=== PATIENT | female | born 1950 | race Caucasian/White ===

== ENCOUNTER 2016-07-15 11:43 | Inpatient (IN) ==
[2016-07-15] MEDS ORDERED: Naloxone 0.4 MG/ML INJ IVP PRN (14:39)
[2016-07-15] MEDS ORDERED: Azithromycin 500 MG in D5% in Water 250 ML IVPB SCH (15:00)
--- NOTE | 2016-07-15 15:18 | Pulmonology History & Physical ---
Date of Encounter: 07/15/16 Time of Encounter: 15:13 Assessment and Plan (1) Acute respiratory failure with hypercapnia Current visit: Yes Status: Acute Multifactorial in etiology and due to underlying COPD with acute exacerbation coupled with obesity hypoventilation syndrome + respiratory depressants ( opioids and benzodiazepines). Continue BiPAP tolerance. We will keep her on BiPAP overnight tonight, and assess in the a.m. for trials off BiPAP. If her mental status were to worsen or she develops worsening hypercapnic respiratory failure, proceed with intubation. I discussed the possibility of this with the family, and she is currently full code. (2) Acute exacerbation of chronic obstructive airways disease Current visit: No Status: Acute History of COPD and an active smoker. She is wheezing on exam. Unclear etiology of acute exacerbation. She is febrile and may have an upper respiratory tract infection, but I am unable to obtain history for this. We will place her on levofloxacin, intravenous steroids, and scheduled bronchodilators. (3) CHF (congestive heart failure) Current visit: No Status: Chronic Most recent echocardiogram with combined systolic and diastolic heart failure. BNP was mildly elevated, but the chest x-ray is not impressive for severe pulmonary edema. She was given a dose of diuretic prior to transfer. We will place a Allred and trend her ins and outs. Otherwise continue heart rate and blood pressure control for treatment of diastolic heart failure. Qualifiers: Congestive heart failure type: combined Congestive heart failure chronicity : unspecified congestive heart failure chronicity Qualified Code(s): I50.40 - Unspecified combined systolic (congestive) and diastolic (congestive) heart failure (4) Acute kidney injury superimposed on CKD Current visit: Yes Status: Acute Creatinine is slightly elevated from her baseline (~1.5). We will continue to trend urine output and Chem-7 as we diurese. We will repeat a Chem-7 in the p.m. today, as her potassium was elevated on a.m. Chem-7. (5) Fever Current visit: Yes Status: Acute Fever of unclear etiology, since I am unable to obtain a proper history. We will check a urinalysis/culture and blood cultures. If she does produce sputum we will check a sputum culture. She has been started on levofloxacin empirically for upper respiratory tract infection. Qualifiers: Fever type: unspecified Qualified Code(s): R50.9 - Fever, unspecified (6) Encephalopathy Current visit: Yes Status: Acute Likely toxic/metabolic in etiology. She did receive a dose of Ativan prior to transfer. Hypercapnia may be playing a role as well. We will continue supportive care and avoid sedating and delirium inducing medications. (7) DVT prophylaxis Current visit: Yes Status: Acute Subcutaneous heparin History of Present Illness Chief complaint: Acute respiratory failure HPI: Ms. Pruitt is a 66 year old female with a medical history significant for untreated sleep apnea, morbid obesity, COPD, and active smoking who presents with acute respiratory failure and encephalopathy. Of note, the patient is currently encephalopathic and I am unable to obtain any history or review of systems. Information was obtained from the medical record and discussion with hospital staff + family at bedside. Reportedly, the patient had been increasingly confused at home. This was associated with progressive dyspnea on exertion. The patient had also been fairly somnolent and difficult to arouse. She was taken to [facility] and admitted. She has essentially been BiPAP dependent since admission the past 24 hours. Per family request she was transferred to [facility] for further evaluation and management. Past Med Surg Social Fam HX - Past Medical History Medical history: arthritis, COPD, DVT, dementia, diabetes, hyperlipidemia, hypertension, myocardial infarction, osteoporosis, renal disease, thyroid disease, TIA Psychiatric history: depression - Past Surgical History Surgical History: appendectomy, cholecystectomy, coronary bypass (CABG), hysterectomy, other - Social History Smoking Status: Current every day smoker Smokeless Tobacco Status: No Alcohol use: none Drug use: none - Family History Mother Family Member Ethnicity: Non- Living Status: Hx Family Cardiac Disorders: Yes (CHF, HTN) Hx Family Respiratory Disorders: No Hx Family Cancer: No Hx Family GI Disorders: No Hx Family Endocrine Disorder: Yes (Psorosis) Hx Family Neuromuscular Disorders: No Hx Family Neurologic Disorders: No Hx Family HEENT Disorders: No Hx Family Autoimmune Disorders: No Medications and Allergies Albuterol Sulfate [Proair Hfa] 2 puff IH Q4-6H PRN 09/11/15 [History] Clopidogrel [Plavix] 75 mg PO DAILY 09/11/15 [History] Duloxetine HCl [Cymbalta] 60 mg PO QHS 09/11/15 [History] Ergocalciferol (VITAMIN D2) [Vitamin D2 (50,000 UNIT)] 50,000 unit PO QWEEK [History] Fluticasone/Salmeterol [Advair 500-50 Diskus] 1 each IH BID 09/11/15 [History] Isosorbide MONOnitrate (24 HR) [Imdur] 60 mg PO DAILY 09/11/15 [History] Ranolazine [Ranexa] 1,000 mg PO BID 09/11/15 [History] Simvastatin [Zocor] 20 mg PO HS 09/11/15 [History] Tiotropium [Spiriva] 18 mcg IH 0700 09/11/15 [History] Calcitriol [Rocaltrol] 0.25 mcg PO DAILY 02/23/16 [History] Cetirizine HCl [Zyrtec] 10 mg PO DAILY PRN 02/23/16 [History] LORazepam [Ativan] 1 mg PO BID PRN 02/23/16 [History] Lactulose 15 gm PO HS PRN 02/23/16 [History] Pantoprazole Sodium [Protonix] 40 mg PO DAILY 02/26/16 [History] Furosemide [Lasix] 20 mg PO DAILY #30 tablet 04/26/16 [Rx] Lactobacillus [Culturelle] 1 each PO BID #6 cap.sprink 04/26/16 [Rx] Insulin LISPRO [HumaLOG] 20 units SQ TIDWM 06/07/16 [History] Lisinopril 2.5 mg PO DAILY 06/07/16 [History] Promethazine [Phenergan] 12.5 mg PO Q8HR PRN 06/07/16 [History] Allopurinol [Zyloprim] 200 mg PO DAILY #60 tablet 06/09/16 [Rx] Insulin DETEMIR [Levemir] 90 unit SQ BID #0 06/09/16 [Rx] Metoprolol [Lopressor] 50 mg PO BID #60 tablet 06/09/16 [Rx] Enoxaparin [Lovenox] 100 mg SQ Q12HR 07/15/16 [History] Gabapentin [Neurontin] 600 mg PO TID 07/15/16 [History] Oxycodone HCl/Acetaminophen [Percocet 5-325 mg Tablet] 1 each PO Q6H PRN [History] Warfarin [Coumadin] 5 mg PO TUWETH 07/15/16 [History] Warfarin [Coumadin] 7.5 mg PO SUMOFRSA 07/15/16 [History] Allergies Penicillins Allergy (Verified 07/14/16 04:55) Hives tramadol [From Ultram] Allergy (Verified 07/14/16 04:55) Hives aspirin Adverse Reaction (Verified 07/14/16 04:55) Vomiting codeine Adverse Reaction (Verified 07/14/16 04:55) Vomiting fluticasone [From Flovent Diskus] Adverse Reaction (Verified 07/14/16 04:55) Rash morphine Adverse Reaction (Verified 07/14/16 04:55) Hallucinating Sulfa (Sulfonamide Antibiotics) Adverse Reaction (Verified 07/14/16 04:55) Vomiting ROS unobtainable: due to mental status Physical Examination Vital Signs: Vital Signs, Last 4 Hours Temp Pulse Resp BP Pulse Ox 07/15/16 14:21 103 22 122/55 98 07/15/16 14:11 101.7 F H 104 22 139/65 98 07/15/16 13:54 103 General: Chronically ill-appearing, obese, not interactive with caregivers Eyes: nonicteric ENT: IPAP mask in place Neck: supple, no lymphadenopathy Lungs: Expiratory wheezing noted bilaterally Cardiovascular: regular rate and rhythm Gastrointestinal: normoactive bowel sounds, soft, non-tender, non-distended Integumentary: normal Extremities: no cyanosis, no edema Musculoskeletal: no deformities Neuro: Encephalopathic Psych: Exam deferred
[2016-07-15] MEDS ORDERED: Levofloxacin 750 MG/150 ML 750 MG/150 ML BAG IVPB SCH (16:00)
[2016-07-15] MEDS: Ipratropium/Albuterol Neb 3 ML IH SCH ×2 (16:01→19:36)
[2016-07-15 16:34] LABS: Potassium 5.7 mEq/L (3.5-4.5)
[2016-07-15 16:44] LABS: Bilirubin,Urine Small (Negative); Blood,Urine Large (Negative); Clarity,Urine Clear (Clear); Color,Urine Yellow (Yellow); Glucose,Urine (UA) Normal (Normal); Ketones,Urine Negative (Negative); Leukocyte Esterase,Urine Negative (Negative); Nitrite,Urine Negative (Negative); PH,Urine 5.5 pH Units (5.0-8.0); Protein,Urine >=300 mg/dL (Neg-Trace); Specific Gravity,Urine 1.018 (1.010-1.025); Urobilinogen,Urine Normal (Normal)
[2016-07-15 16:46] LABS: Bacteria,Urine None Seen per hpf (None-Few); Hyaline Casts,Urine None Seen per lpf (None-Few); Squamous Epithelial Cell,Urine Many per lpf (None-Few); WBC,Urine 0-3 per hpf (0-3)
[2016-07-15 16:46] LABS: ABG Base Excess 0.5 mEq/L (-2.0 to 3.0); ABG HCO3 27.7 mEQ/L (21-27); ABG Oxygen Saturation 98 % (95-98); ABG PCO2 55 mmHg (35-45); ABG PH 7.31 pH Units (7.32-7.45); ABG PO2 107 mmHg (85-104); ABG TCO2 29.4 mEq/L (20-26)
[2016-07-15] MEDS: MethylPREDNISolone 40 MG/ML VIAL IVP SCH ×2 (17:16→23:31)
[2016-07-15] MEDS: *HR* Heparin 5,000 UNIT/ML VIAL SQ SCH ×2 (17:16→23:31)
[2016-07-15] MEDS ORDERED: Dextrose Gel 15 GM PO PRN ×2 (17:18)
[2016-07-15] MEDS ORDERED: D5% in Water 1,000 ML IV PRN (17:18)
[2016-07-15] MEDS ORDERED: *HR* Dextrose 50 % in Water (Syg) 50 ML SYRINGE IVP PRN (17:18)
[2016-07-15] MEDS ORDERED: Insulin LISPRO 300 UNITS/3 ML VIAL SQ SCH (18:00)
[2016-07-15] MEDS: Insulin LISPRO 300 UNITS/3 ML VIAL SQ SCH ×2 (18:08→23:32)
[2016-07-15] MEDS: *HR* OxyCODONE/APAP 5/325 TABLET PO PRN (21:29)
[2016-07-16] MEDS: Ipratropium/Albuterol Neb 3 ML IH SCH ×4 (03:33→22:16)
[2016-07-16 04:28] LABS: Basophils % 0.2 %; Hematocrit 32.2 % (35.3-44.9); Hemoglobin 10.1 g/dL (11.5-15.4); Immature Granulocytes % 1.6 % (0-4); Lymphocytes # 0.4 K/mcL (0.6-4.6); Lymphocytes % 7.9 %; Mean Corpuscular HGB Conc 31.4 g/dL (31.6-35.5); Mean Corpuscular Hemoglobin 29.5 pg (28.0-33.3); Mean Corpuscular Volume 94.2 fL (83.0-100.0); Mean Platelet Volume 12.1 fL (9.4-12.4); Monocytes # 0.1 K/mcL (0.0-1.3); Monocytes % 1.6 %; Platelet Count 154 K/mcL (140-400); Red Blood Count 3.42 M/mcL (3.82-4.97); Red Cell Distribution Width 15.4 % (11.5-14.5); Segmented Neutrophils % 88.7 %
[2016-07-16 04:44] LABS: Albumin 2.2 g/dL (3.5-5.0); Albumin/Globulin Ratio 0.5 (1.1-2.2); Bilirubin,Total 0.5 mg/dL (0.2-1.2); Calcium 9.1 mg/dL (8.6-10.8); Globulin 4.7 g/dL (2.4-3.5); Potassium 5.2 mEq/L (3.5-4.5); Total Protein 6.9 g/dL (6.0-8.3)
[2016-07-16] MEDS: Insulin LISPRO 300 UNITS/3 ML VIAL SQ SCH ×5 (05:54→23:28)
[2016-07-16] MEDS: MethylPREDNISolone 40 MG/ML VIAL IVP SCH ×3 (05:54→17:28)
--- NOTE | 2016-07-16 07:25 | Pulmonology Progress Note ---
Date of Encounter: 07/16/16 Time of Encounter: 07:20 Assessment and Plan (1) Acute respiratory failure with hypercapnia Current Visit: Yes Status: Acute Mulifactorial, Acute COPD exacerbation, Obesity hypoventilation syndrome, respiratory depressants (opioids, benzos) BiPAP over night now tolerating NC with O2 95% (2) Acute exacerbation of chronic obstructive airways disease Current Visit: No Status: Acute COPD exacerbation possibly caused by upper respiratory infection Placed on levaquin for empirical therapy IV steroids, scheduled bronchodilators (3) CHF (congestive heart failure) Current Visit: No Status: Chronic Most recent echo showed both systolic and diastolic heart failure BNP:1427, CXR on 07/14/16 demonstrated no abnormalities Was given diuretic prior to transfer Allred in place to trend in and outs Heart rate and blood pressure control Qualifiers: Congestive heart failure type: combined Congestive heart failure chronicity : unspecified congestive heart failure chronicity Qualified Code(s): I50.40 - Unspecified combined systolic (congestive) and diastolic (congestive) heart failure (4) Acute kidney injury superimposed on CKD Current Visit: Yes Status: Acute Creatinine 1.39 today (1.54 yesterday) Continue to diurese and trend labs K: 5.2 today (5.7 yesterday) (5) Fever Current Visit: Yes Status: Acute Urinalysis did not show evidence for UTI and no culture was indicated Blood cultures have not showed any growth Levaquin started empirically for possible URI Qualifiers: Fever type: unspecified Qualified Code(s): R50.9 - Fever, unspecified (6) Encephalopathy Current Visit: Yes Status: Acute Likely toxic/metabolic in etiology Received Ativan prior to transfer Hypercapnia may be playing a role Continue supportive care (7) DVT prophylaxis Current Visit: Yes Status: Acute Heparin SQ Subjective Principal diagnosis: Acute respiratory failure Interval history: Pt is on BiPAP this morning. She reports that she continues to feel short of breath, unchanged from arrival. She denies having any chest pain or abdominal pain. Objective PUL Vital signs: Last Vital Signs Temp 97.6 F 07/16/16 04:00 Pulse 94 07/16/16 06:00 Resp 17 07/16/16 06:00 BP 152/77 07/16/16 06:00 Pulse Ox 98 07/16/16 06:00 General appearance: other (On BiPAP, arousable) Eyes: nonicteric ENT: oropharynx moist Auscultation: bilateral: wheezes, rhonchi Cardiovascular: regular rate and rhythm Gastrointestinal: normoactive bowel sounds, non-tender, non-distended Extremities: no cyanosis, edema Musculoskeletal: no deformities non-focal exam Results - Laboratory Findings CBC and BMP: 07/16/16 03:49 07/16/16 03:49 ABG ABG pH 7.31 pH Units (7.32-7.45) L 07/15/16 13:10 ABG pCO2 55 mmHg (35-45) H 07/15/16 13:10 ABG pO2 107 mmHg (85-104) H 07/15/16 13:10 ABG O2 Saturation 98 % (95-98) 07/15/16 13:10 Abnormal lab findings: Abnormal lab results RBC 3.42 M/mcL (3.82-4.97) L 07/16/16 03:49 Hgb 10.1 g/dL (11.5-15.4) L 07/16/16 03:49 Hct 32.2 % (35.3-44.9) L 07/16/16 03:49 MCHC 31.4 g/dL (31.6-35.5) L 07/16/16 03:49 RDW 15.4 % (11.5-14.5) H 07/16/16 03:49 Lymphocytes # 0.4 K/mcL (0.6-4.6) L 07/16/16 03:49 ABG pH 7.31 pH Units (7.32-7.45) L 07/15/16 13:10 ABG pCO2 55 mmHg (35-45) H 07/15/16 13:10 ABG pO2 107 mmHg (85-104) H 07/15/16 13:10 ABG HCO3 27.7 mEQ/L (21-27) H 07/15/16 13:10 ABG Total CO2 29.4 mEq/L (20-26) H 07/15/16 13:10 Sodium 131 mEq/L (136-145) L 07/16/16 03:49 Potassium 5.2 mEq/L (3.5-4.5) H 07/16/16 03:49 BUN 48 mg/dL (7-20) H 07/16/16 03:49 Creatinine 1.39 mg/dL (0.57-1.11) H 07/16/16 03:49 Est GFR ( Amer) 46 (> 60) L 07/16/16 03:49 Est GFR (Non-Af Amer) 38 (> 60) L 07/16/16 03:49 BUN/Creatinine Ratio 35 (6-26) H 07/16/16 03:49 Glucose 323 mg/dL (70-99) H 07/16/16 03:49 POC Glucose 321 (58-89) H 07/15/16 23:25 Albumin 2.2 g/dL (3.5-5.0) L 07/16/16 03:49 Globulin 4.7 g/dL (2.4-3.5) H 07/16/16 03:49 Albumin/Globulin Ratio 0.5 (1.1-2.2) L 07/16/16 03:49 Urine Protein >=300 mg/dL (Neg-Trace) H 07/15/16 16:30 Urine Blood Large (Negative) H 07/15/16 16:30 Urine Bilirubin Small (Negative) H 07/15/16 16:30 Urine Microscopic RBC 5-15 per hpf (0-3) H 07/15/16 16:30 Ur Squamous Epith Cells Many per lpf (None-Few) H 07/15/16 16:30 - Microbiology Findings Microbiology Findings: Microbiology, Last 48 Hours 07/15/16 16:12 Blood Culture - Preliminary Peripheral Venipuncture No growth. 07/15/16 16:12 Blood Culture - Preliminary Peripheral Venipuncture No growth. - Clinical Findings Intake & Output: Intake & Output 07/15/16 07/15/16 07/16/16 15:59 23:59 07:59 Intake Total 390 / 390 0 / 0 Output Total 975 / 975 275 / 275 Balance -585 / -585 -275 / -275 Weight 98.612 kg Consult Discharge Plan - Plan Referrals: NO,PCP [Primary Care Provider] -
[2016-07-16 07:58] LABS: ABG Base Excess 1.3 mEq/L (-2.0 to 3.0); ABG HCO3 25.9 mEQ/L (21-27); ABG Oxygen Saturation 94 % (95-98); ABG PCO2 53 mmHg (35-45); ABG PH 7.33 pH Units (7.32-7.45); ABG PO2 77 mmHg (85-104); ABG TCO2 29.5 mEq/L (20-26); Blood Gas FiO2 32 %; Blood Gas Liter Flow 3 L/MIN
[2016-07-16] MEDS ORDERED: Furosemide 20 MG/2 ML VIAL IVP ONE (08:26)
[2016-07-16] MEDS: Pantoprazole 40 MG VIAL IVPB SCH (08:43)
[2016-07-16] MEDS: *HR* Heparin 5,000 UNIT/ML VIAL SQ SCH ×3 (08:43→23:28)
[2016-07-16] MEDS: Isosorbide MONOnitrate (24 HR) 60 MG TAB.ER.24H PO SCH (12:43)
[2016-07-16] MEDS: Insulin DETEMIR 100 UNIT/ML X5UNITS SQ SCH ×2 (12:43→20:24)
[2016-07-16 13:04] LABS: INR 1.7; Prothrombin Time 18.5 Seconds (9.4-12.1)
[2016-07-16] MEDS: Gabapentin 300 MG CAPSULE PO SCH ×2 (15:05→20:23)
[2016-07-16] MEDS: Ondansetron 4 MG/2 ML VIAL IVP PRN ×2 (17:17→23:28)
[2016-07-16] MEDS ORDERED: *HR* LORazepam 1 MG TABLET PO PRN (19:20)
[2016-07-16] MEDS: *HR* OxyCODONE/APAP 5/325 TABLET PO PRN (20:23)
[2016-07-17] MEDS: Ipratropium/Albuterol Neb 3 ML IH SCH ×4 (03:27→22:25)
[2016-07-17 03:45] LABS: Basophils % 0.1 %; Hematocrit 30.1 % (35.3-44.9); Hemoglobin 9.7 g/dL (11.5-15.4); Immature Granulocytes % 1.3 % (0-4); Lymphocytes # 0.8 K/mcL (0.6-4.6); Lymphocytes % 7.4 %; Mean Corpuscular HGB Conc 32.2 g/dL (31.6-35.5); Mean Corpuscular Hemoglobin 29.2 pg (28.0-33.3); Mean Corpuscular Volume 90.7 fL (83.0-100.0); Mean Platelet Volume 11.7 fL (9.4-12.4); Monocytes # 0.7 K/mcL (0.0-1.3); Monocytes % 5.8 %; Neutrophils # 9.6 K/mcL (1.6-8.9); Platelet Count 201 K/mcL (140-400); Red Blood Count 3.32 M/mcL (3.82-4.97); Red Cell Distribution Width 15.1 % (11.5-14.5); Segmented Neutrophils % 85.4 %
[2016-07-17 03:58] LABS: Calcium 9.1 mg/dL (8.6-10.8); Potassium 4.9 mEq/L (3.5-4.5)
[2016-07-17] MEDS: Insulin LISPRO 300 UNITS/3 ML VIAL SQ SCH ×4 (05:38→20:17)
--- NOTE | 2016-07-17 07:00 | Pulmonology Progress Note ---
Date of Encounter: 07/17/16 Time of Encounter: 06:15 Assessment and Plan (1) Acute respiratory failure with hypercapnia Current Visit: Yes Status: Acute Mulifactorial, Acute COPD exacerbation, Obesity hypoventilation syndrome, respiratory depressants (opioids, benzos) Reports shortness of breath is improved O2 sat 91% on 3L NC (2) Acute exacerbation of chronic obstructive airways disease Current Visit: No Status: Acute COPD exacerbation possibly caused by upper respiratory infection, pt reports having cough and congestion prior to coming to [facility] Placed on levaquin for empirical therapy Scheduled bronchodilators Transitioned to oral steroids today (3) CHF (congestive heart failure) Current Visit: No Status: Chronic Most recent echo showed both systolic and diastolic heart failure BNP:1427, CXR on 07/14/16 demonstrated no abnormalities Was given diuretic prior to transfer Allred in place to trend in and outs Heart rate and blood pressure control Qualifiers: Congestive heart failure type: combined Congestive heart failure chronicity : unspecified congestive heart failure chronicity Qualified Code(s): I50.40 - Unspecified combined systolic (congestive) and diastolic (congestive) heart failure (4) Acute kidney injury superimposed on CKD Current Visit: Yes Status: Acute Creatinine 1.34 today (1.39 yesterday) Continue to diurese and trend labs K: 4.9 today (5.2 yesterday) (5) Fever Current Visit: Yes Status: Acute Urinalysis did not show evidence for UTI and no culture was indicated Blood cultures have not showed any growth Levaquin started empirically for possible URI Qualifiers: Fever type: unspecified Qualified Code(s): R50.9 - Fever, unspecified (6) Encephalopathy Current Visit: Yes Status: Acute Likely toxic/metabolic in etiology Received Ativan prior to transfer Hypercapnia may be playing a role Continue supportive care (7) DVT prophylaxis Current Visit: Yes Status: Acute Heparin SQ Home plavix restarted yesterday Subjective Principal diagnosis: Acute respiratory failure Interval history: Pt is on resting comfortably on 3L NC this morning. She reports that her shortness of breath has improved. Pt has been tolerating po diet without difficulty. She denies having any chest pain or abdominal pain. Allred catheter in place. Objective PUL Vital signs: Last Vital Signs Temp 98.0 F 07/17/16 04:05 Pulse 92 07/17/16 06:00 Resp 26 07/17/16 06:00 BP 131/87 07/17/16 06:00 Pulse Ox 91 L 07/17/16 06:00 General appearance: no acute distress Eyes: nonicteric ENT: oropharynx moist Neck: supple Effort: normal Auscultation: bilateral: wheezes, rhonchi Cardiovascular: regular rate and rhythm Gastrointestinal: normoactive bowel sounds, soft, non-tender, non-distended Integumentary: normal Extremities: no cyanosis, no edema, no clubbing Musculoskeletal: no deformities normal mental status, non-focal exam mood appropriate, affect normal Results - Laboratory Findings CBC and BMP: 07/17/16 03:28 07/17/16 03:28 ABG ABG pH 7.33 pH Units (7.32-7.45) 07/16/16 07:53 ABG pCO2 53 mmHg (35-45) H 07/16/16 07:53 ABG pO2 77 mmHg (85-104) L 07/16/16 07:53 ABG O2 Saturation 94 % (95-98) L 07/16/16 07:53 PT/INR, D-dimer PT 18.5 Seconds (9.4-12.1) H 07/16/16 11:12 Abnormal lab findings: Abnormal lab results WBC 11.2 K/mcL (4.3-11.1) H D 07/17/16 03:28 RBC 3.32 M/mcL (3.82-4.97) L 07/17/16 03:28 Hgb 9.7 g/dL (11.5-15.4) L 07/17/16 03:28 Hct 30.1 % (35.3-44.9) L 07/17/16 03:28 RDW 15.1 % (11.5-14.5) H 07/17/16 03:28 Neutrophils # 9.6 K/mcL (1.6-8.9) H 07/17/16 03:28 Immature Plt Fraction 8.0 % (1.1-6.1) H 07/17/16 03:28 PT 18.5 Seconds (9.4-12.1) H 07/16/16 11:12 ABG pCO2 53 mmHg (35-45) H 07/16/16 07:53 ABG pO2 77 mmHg (85-104) L 07/16/16 07:53 ABG Total CO2 29.5 mEq/L (20-26) H 07/16/16 07:53 ABG O2 Saturation 94 % (95-98) L 07/16/16 07:53 Sodium 129 mEq/L (136-145) L 07/17/16 03:28 Potassium 4.9 mEq/L (3.5-4.5) H 07/17/16 03:28 Chloride 96 mEq/L (98-109) L 07/17/16 03:28 BUN 55 mg/dL (7-20) H 07/17/16 03:28 Creatinine 1.35 mg/dL (0.57-1.11) H 07/17/16 03:28 Est GFR ( Amer) 47 (> 60) L 07/17/16 03:28 Est GFR (Non-Af Amer) 39 (> 60) L 07/17/16 03:28 BUN/Creatinine Ratio 41 (6-26) H 07/17/16 03:28 Glucose 68 mg/dL (70-99) L 07/17/16 03:28 POC Glucose 335 (58-89) H 07/16/16 21:56 Albumin 2.2 g/dL (3.5-5.0) L 07/16/16 03:49 Globulin 4.7 g/dL (2.4-3.5) H 07/16/16 03:49 Albumin/Globulin Ratio 0.5 (1.1-2.2) L 07/16/16 03:49 Urine Protein >=300 mg/dL (Neg-Trace) H 07/15/16 16:30 Urine Blood Large (Negative) H 07/15/16 16:30 Urine Bilirubin Small (Negative) H 07/15/16 16:30 Urine Microscopic RBC 5-15 per hpf (0-3) H 07/15/16 16:30 Ur Squamous Epith Cells Many per lpf (None-Few) H 07/15/16 16:30 - Microbiology Findings Microbiology Findings: Microbiology, Last 48 Hours 07/15/16 16:12 Blood Culture - Preliminary Peripheral Venipuncture No growth. 07/15/16 16:12 Blood Culture - Preliminary Peripheral Venipuncture No growth. - Clinical Findings Intake & Output: Intake & Output 07/16/16 07/16/16 07/17/16 15:59 23:59 07:59 Intake Total 240 / 240 1440 / 1440 400 / 400 Output Total 1375 / 1375 625 / 625 100 / 100 Balance -1135 / -1135 815 / 815 300 / 300 Consult Discharge Plan - Plan Referrals: NO,PCP [Primary Care Provider] -
[2016-07-17] MEDS: *HR* Heparin 5,000 UNIT/ML VIAL SQ SCH ×3 (07:48→23:57)
[2016-07-17] MEDS: Isosorbide MONOnitrate (24 HR) 60 MG TAB.ER.24H PO SCH (07:48)
[2016-07-17] MEDS: Pantoprazole 40 MG VIAL IVPB SCH (07:48)
[2016-07-17] MEDS: Gabapentin 300 MG CAPSULE PO SCH ×3 (07:49→19:46)
[2016-07-17] MEDS: Insulin DETEMIR 100 UNIT/ML X5UNITS SQ SCH ×2 (07:51→19:47)
[2016-07-17] MEDS ORDERED: Furosemide 20 MG TABLET PO SCH (09:00)
[2016-07-17] MEDS ORDERED: predniSONE 20 MG TABLET PO SCH (09:00)
[2016-07-17] MEDS ORDERED: Naloxone 0.4 MG/ML INJ IVP PRN (09:09)
[2016-07-17] MEDS ORDERED: Dextrose Gel 15 GM PO PRN ×2 (09:09)
[2016-07-17] MEDS ORDERED: D5% in Water 1,000 ML IV PRN (09:09)
[2016-07-17] MEDS ORDERED: *HR* LORazepam 1 MG TABLET PO PRN (09:09)
[2016-07-17] MEDS ORDERED: *HR* Dextrose 50 % in Water (Syg) 50 ML SYRINGE IVP PRN (09:09)
[2016-07-17] MEDS ORDERED: Insulin LISPRO 300 UNITS/3 ML VIAL SQ SCH (12:00)
[2016-07-17] MEDS: *HR* OxyCODONE/APAP 5/325 TABLET PO PRN ×2 (13:18→19:47)
[2016-07-17] MEDS: Ondansetron 4 MG/2 ML VIAL IVP PRN (13:19)
[2016-07-17] MEDS: Levofloxacin 750 MG/150 ML 750 MG/150 ML BAG IVPB SCH (15:44)
[2016-07-17] MEDS: *HR* Warfarin 7.5 MG TABLET PO SCH (17:02)
[2016-07-17] MEDS ORDERED: *HR* Warfarin 7.5 MG TABLET PO SCH (18:00)
[2016-07-17] MEDS ORDERED: Warfarin perPT PO PRN ×2 (18:00)
[2016-07-17] MEDS ORDERED: Insulin DETEMIR 100 UNIT/ML X5UNITS SQ SCH (21:00)
[2016-07-18] MEDS: Ipratropium/Albuterol Neb 3 ML IH SCH ×4 (04:51→22:28)
[2016-07-18 05:51] LABS: Basophils % 0.2 %; Hematocrit 30.9 % (35.3-44.9); Hemoglobin 9.9 g/dL (11.5-15.4); Immature Granulocytes % 0.8 % (0-4); Lymphocytes # 1.2 K/mcL (0.6-4.6); Lymphocytes % 20.1 %; Mean Corpuscular Hemoglobin 29.1 pg (28.0-33.3); Mean Corpuscular Volume 90.9 fL (83.0-100.0); Mean Platelet Volume 11.3 fL (9.4-12.4); Monocytes # 0.5 K/mcL (0.0-1.3); Monocytes % 8.3 %; Neutrophils # 4.2 K/mcL (1.6-8.9); Nucleated Red Blood Cells 0.3 /100 WBC (0); Platelet Count 188 K/mcL (140-400); Segmented Neutrophils % 70.6 %
[2016-07-18 05:56] LABS: INR 1.6; Prothrombin Time 17.6 Seconds (9.4-12.1)
[2016-07-18 06:15] LABS: Platelet Estimate Normal (Normal)
[2016-07-18] MEDS: *HR* OxyCODONE/APAP 5/325 TABLET PO PRN (06:44)
[2016-07-18] MEDS: Insulin LISPRO 300 UNITS/3 ML VIAL SQ SCH ×4 (07:13→19:50)
[2016-07-18] MEDS: Gabapentin 300 MG CAPSULE PO SCH ×3 (08:07→19:36)
[2016-07-18] MEDS: predniSONE 20 MG TABLET PO SCH (08:08)
[2016-07-18] MEDS: *HR* Heparin 5,000 UNIT/ML VIAL SQ SCH ×3 (08:08→23:20)
[2016-07-18] MEDS: Isosorbide MONOnitrate (24 HR) 60 MG TAB.ER.24H PO SCH (08:08)
[2016-07-18] MEDS: Furosemide 20 MG TABLET PO SCH (08:08)
[2016-07-18] MEDS: Insulin DETEMIR 100 UNIT/ML X5UNITS SQ SCH ×2 (08:09→19:50)
[2016-07-18] MEDS ORDERED: Pantoprazole 40 MG VIAL IVPB SCH (09:00)
--- NOTE | 2016-07-18 16:59 | Internal Med Progress Note ---
Date of Encounter: 07/18/16 Time of Encounter: 11:45 - Assessment and plan (1) Acute respiratory failure with hypercapnia Current Visit: Yes Status: Acute Assessment and plan: Improving. Being treated for acute exacerbation of COPD along with underlying SCOTT/OHS. Recommended nocturnal BiPAP support along with daytime supplemental oxygen by pulmonary. Patient has been reluctant to use BiPAP in the past but is currently agreeable to overnight pulse oximetry study for possible BiPAP qualification. Continue supportive care. (2) Acute exacerbation of chronic obstructive airways disease Current Visit: Yes Status: Acute Assessment and plan: Improving. Continue oral steroids to complete a two-week course. Continue empiric antibiotics with IV Levaquin for possible bronchitis/UTI. Blood and urine cultures remain negative. Continue supplemental oxygen as needed. Overnight BiPAP qualification study as above. (3) SCOTT (obstructive sleep apnea) Current Visit: Yes Status: Chronic (4) CAD (coronary artery disease), [place] coronary artery Current Visit: Yes Status: Chronic Qualifiers: [place] vs. transplanted heart: [place] heart Associated angina: without angina Qualified Code(s): I25.10 - Atherosclerotic heart disease of [place] coronary artery without angina pectoris (5) CHF (congestive heart failure) Current Visit: Yes Status: Chronic Qualifiers: Congestive heart failure type: combined Congestive heart failure chronicity : chronic Qualified Code(s): I50.42 - Chronic combined systolic (congestive) and diastolic (congestive) heart failure (6) CKD (chronic kidney disease) stage 3, GFR 30-59 ml/min Current Visit: Yes Status: Chronic Assessment and plan: Noted to have acute on chronic renal dysfunction. Improving serum creatinine, back to baseline at this time. (7) DM2 (diabetes mellitus, type 2) Current Visit: Yes Status: Chronic Assessment and plan: Check hemoglobin A1c. Continue basal bolus insulin regimen. Blood sugars noted to be fairly controlled. Diabetic diet. Qualifiers: Diabetes mellitus complication status: with kidney complications Diabetes mellitus complication detail: with chronic kidney disease Diabetes mellitus half-way insulin use: with half-way use Chronic kidney disease stage: stage 3 (moderate) Qualified Code(s): E11.22 - Type 2 diabetes mellitus with diabetic chronic kidney disease; N18.3 - Chronic kidney disease, stage 3 ( moderate); Z79.4 - prison (current) use of insulin (8) DVT (deep venous thrombosis) Current Visit: Yes Status: Chronic Assessment and plan: Noted to have developed acute DVT of right lower extremity in February 2016. Continue Coumadin and monitor INR. Qualifiers: DVT location: lower extremity Affected thrombotic vein of extremity: unspecified lower extremity distal vein Laterality: right Chronicity: acute Qualified Code(s): I82.4Z1 - Acute embolism and thrombosis of unspecified deep veins of right distal lower extremity - Subjective Interval history: Noted to be sitting up in bed, having lunch. Appears cheerful and states she is ready to go home. Improved shortness of breath. No chest pain, palpitations , orthopnea. Reports that she had BiPAP at home but she discarded it as she did not like using it! - Constitutional Vitals: Temp Pulse Resp BP Pulse Ox 97.7 F 83 18 152/74 96 07/18/16 15:41 07/18/16 15:41 07/18/16 15:41 07/18/16 15:41 07/18/16 15:41 General appearance: Present: A&O X 3, answers questions appropriately - Head Head exam: Present: atraumatic, normocephalic - Neck Neck exam general surgery: Present: supple, trachea midline. Absent: lymphadenopathy - Respiratory Respiratory exam: Present: CTAB. Absent: accessory muscle use, rales, rhonchi, wheezes - Cardiovascular Cardiovascular exam: Present: RRR, +S1, +S2. Absent: diastolic murmur, gallop, rubs, systolic murmur - GI/Abdominal GI/Abdominal exam: Present: normal bowel sounds, soft, no peritoneal signs. Absent: distended, tenderness - Extremities Exam Extremities exam: Present: warm, radial pulses palpable and symetrical. Absent : calf tenderness, cyanotic, pedal edema - Neurological Exam Neurological exam: Present: CN II-XII intact, oriented X3, no focal deficits. Absent: pronater drift, facial droop, speech deficit - Skin Skin exam: Present: dry, intact Internal Medicine: Result - Labs CBC & Chem 7: 07/18/16 05:41 07/18/16 05:41 Labs: Short CBC 07/18/16 Range/Units 05:41 WBC 5.9 (4.3-11.1) K/mcL Hgb 9.9 L (11.5-15.4) g/dL Hct 30.9 L (35.3-44.9) % Plt Count 188 (140-400) K/mcL Neutrophils # 4.2 (1.6-8.9) K/mcL BMP 07/18/16 05:41 Sodium 129 L Potassium 5.0 H Chloride 96 L Carbon Dioxide 23 BUN 54 H Creatinine 1.26 H Glucose 71 Calcium 9.0 - ABG Interpretation ABG results: ABG ABG pH 7.33 pH Units (7.32-7.45) 07/16/16 07:53 ABG pCO2 53 mmHg (35-45) H 07/16/16 07:53 ABG pO2 77 mmHg (85-104) L 07/16/16 07:53 ABG O2 Saturation 94 % (95-98) L 07/16/16 07:53 PT/INR, D-dimer PT 17.6 Seconds (9.4-12.1) H 07/18/16 05:41 Consult Discharge Plan - Plan Referrals: NO,PCP [Non-Partnered Physician] -
[2016-07-18] MEDS: *HR* Warfarin 7.5 MG TABLET PO SCH (17:03)
[2016-07-19] MEDS: Ipratropium/Albuterol Neb 3 ML IH SCH ×3 (03:54→15:44)
[2016-07-19 06:30] LABS: INR 1.6
[2016-07-19] MEDS: Insulin LISPRO 300 UNITS/3 ML VIAL SQ SCH ×3 (08:16→17:21)
[2016-07-19] MEDS: *HR* Heparin 5,000 UNIT/ML VIAL SQ SCH ×2 (08:16→17:20)
[2016-07-19] MEDS: predniSONE 20 MG TABLET PO SCH (08:17)
[2016-07-19] MEDS: Gabapentin 300 MG CAPSULE PO SCH ×2 (08:17→15:16)
[2016-07-19] MEDS: Isosorbide MONOnitrate (24 HR) 60 MG TAB.ER.24H PO SCH (08:17)
[2016-07-19] MEDS: Furosemide 20 MG TABLET PO SCH (08:17)
[2016-07-19] MEDS: Insulin DETEMIR 100 UNIT/ML X5UNITS SQ SCH (08:20)
[2016-07-19] MEDS: *HR* OxyCODONE/APAP 5/325 TABLET PO PRN ×2 (08:44→15:15)
[2016-07-19] MEDS: Ondansetron 4 MG/2 ML VIAL IVP PRN (10:46)
[2016-07-19 10:48] VITALS: BP 151/74
--- NOTE | 2016-07-19 13:42 | Discharge Summary ---
Date of Encounter: 07/19/16 Time of Encounter: 13:38 - Discharge Diagnosis (1) Acute respiratory failure with hypercapnia Priority: Primary Status: Acute (2) Acute exacerbation of chronic obstructive airways disease Priority: Primary Status: Acute (3) SCOTT (obstructive sleep apnea) Priority: Secondary Status: Chronic (4) CAD (coronary artery disease), [place] coronary artery Priority: Secondary Status: Chronic Qualifiers: [place] vs. transplanted heart: [place] heart Associated angina: without angina Qualified Code(s): I25.10 - Atherosclerotic heart disease of [place] coronary artery without angina pectoris (5) CHF (congestive heart failure) Priority: Secondary Status: Chronic Qualifiers: Congestive heart failure type: combined Congestive heart failure chronicity : chronic Qualified Code(s): I50.42 - Chronic combined systolic (congestive) and diastolic (congestive) heart failure (6) CKD (chronic kidney disease) stage 3, GFR 30-59 ml/min Priority: Secondary Status: Chronic (7) DM2 (diabetes mellitus, type 2) Priority: Secondary Status: Chronic Qualifiers: Diabetes mellitus complication status: with kidney complications Diabetes mellitus complication detail: with chronic kidney disease Diabetes mellitus senior living insulin use: with terminal make up operator use Chronic kidney disease stage: stage 3 (moderate) Qualified Code(s): E11.22 - Type 2 diabetes mellitus with diabetic chronic kidney disease; N18.3 - Chronic kidney disease, stage 3 ( moderate); Z79.4 - terminal make up operator (current) use of insulin (8) DVT (deep venous thrombosis) Priority: Secondary Status: Chronic Qualifiers: DVT location: lower extremity Affected thrombotic vein of extremity: unspecified lower extremity distal vein Laterality: right Chronicity: acute Qualified Code(s): I82.4Z1 - Acute embolism and thrombosis of unspecified deep veins of right distal lower extremity - Discharge Medications Prescriptions: Levofloxacin [Levaquin] 500 mg PO ONCE #1 tablet PredniSONE 40 mg PO DAILY 12 Days Home Medications: Albuterol Sulfate [Proair Hfa] 2 puff IH Q4-6H PRN 09/11/15 [History] Clopidogrel [Plavix] 75 mg PO DAILY 09/11/15 [History] Duloxetine HCl [Cymbalta] 60 mg PO QHS 09/11/15 [History] Ergocalciferol (VITAMIN D2) [Vitamin D2 (50,000 UNIT)] 50,000 unit PO QWEEK [History] Fluticasone/Salmeterol [Advair 500-50 Diskus] 1 each IH BID 09/11/15 [History] Isosorbide MONOnitrate (24 HR) [Imdur] 60 mg PO DAILY 09/11/15 [History] Ranolazine [Ranexa] 1,000 mg PO BID 09/11/15 [History] Simvastatin [Zocor] 20 mg PO HS 09/11/15 [History] Tiotropium [Spiriva] 18 mcg IH 0700 09/11/15 [History] Calcitriol [Rocaltrol] 0.25 mcg PO DAILY 02/23/16 [History] Cetirizine HCl [Zyrtec] 10 mg PO DAILY PRN 02/23/16 [History] LORazepam [Ativan] 1 mg PO BID PRN 02/23/16 [History] Lactulose 15 gm PO HS PRN 02/23/16 [History] Pantoprazole Sodium [Protonix] 40 mg PO DAILY 02/26/16 [History] Furosemide [Lasix] 20 mg PO DAILY #30 tablet 04/26/16 [Rx] Lactobacillus [Culturelle] 1 each PO BID #6 cap.sprink 04/26/16 [Rx] Insulin LISPRO [HumaLOG] 20 units SQ TIDWM 06/07/16 [History] Lisinopril 2.5 mg PO DAILY 06/07/16 [History] Promethazine [Phenergan] 12.5 mg PO Q8HR PRN 06/07/16 [History] Allopurinol [Zyloprim] 200 mg PO DAILY #60 tablet 06/09/16 [Rx] Insulin DETEMIR [Levemir] 90 unit SQ BID #0 06/09/16 [Rx] Metoprolol [Lopressor] 50 mg PO BID #60 tablet 06/09/16 [Rx] Gabapentin [Neurontin] 600 mg PO TID 07/15/16 [History] Oxycodone HCl/Acetaminophen [Percocet 5-325 mg Tablet] 1 each PO Q6H PRN [History] Warfarin [Coumadin] 5 mg PO WETH 07/15/16 [History] Warfarin [Coumadin] 7.5 mg PO SUMOFRSA 07/15/16 [History] Levofloxacin [Levaquin] 500 mg PO ONCE #1 tablet 07/19/16 [Rx] PredniSONE 40 mg PO DAILY 12 Days 07/19/16 [Rx] Allergies/Adverse Reactions: Allergies Penicillins Allergy (Verified 07/14/16 04:55) Hives tramadol [From Ultram] Allergy (Verified 07/14/16 04:55) Hives aspirin Adverse Reaction (Verified 07/14/16 04:55) Vomiting codeine Adverse Reaction (Verified 07/14/16 04:55) Vomiting fluticasone [From Flovent Diskus] Adverse Reaction (Verified 07/14/16 04:55) Rash morphine Adverse Reaction (Verified 07/14/16 04:55) Hallucinating Sulfa (Sulfonamide Antibiotics) Adverse Reaction (Verified 07/14/16 04:55) Vomiting Date of admission: 07/15/16 13:02 Primary care physician: King Villatoro DO Consults: 07/16/16 10:56 Consult to Extrusion Process Operator [CONS] Routine Reason for SW Consult: Current at home living situation and d/c planning Discharging clinician: Jonelle Nuñez Anticipated date of discharge: 07/19/16 - Patient Status Disposition: Home, Self-Care Condition: Fair Functional capacity at discharge: independent ambulation Overall status at discharge: patient is progressing back to baseline - Discharge Instructions Instructions: Prednisone (By mouth), Levofloxacin (By mouth), Heart Failure (DC ), Chronic Obstructive Pulmonary Disease (DC) Additional Instructions: Follow-up with primary care provider in one to 2 weeks Follow-up with [place] [facility] in 2 weeks - Diet and Activity Activity: resume usual activities as tolerated, wear oxygen at all times, other (Wear BiPAP at night and during daytime naps ) Diet: diabetic diet, low fat, low cholesterol, low salt diet Hospital course: Ms. Pruitt is a 66 year old female with the above medical problems, admitted with worsening cough and shortness of breath. She was noted to have an acute exacerbation of COPD and initially admitted to ICU as she required continuous noninvasive positive pressure ventilation with BiPAP support. She gradually improved and was placed on supplemental oxygen via nasal cannula during the day and recommended BiPAP support at night. She was started on IV steroids, empiric IV antibiotics along with bronchodilators and inhaled corticosteroids for treatment of underlying COPD. Patient improved on this regimen and was transferred to medical floor. Her ABGs showed carbon dioxide retention and she underwent overnight pulse oximetry study and is qualified for home BiPAP as she is noted to have more than 5 minutes of continuous hypoxia during sleep. Patient has been explained about this and is agreeable to using BiPAP regularly. She is otherwise medically stable for discharge on oral steroids and antibiotics. - Time Spent with Patient Total time spent providing and/or coordinating discharge services: Greater than 30 minutes (50 min) - Constitutional Vitals: Temp Pulse Resp BP Pulse Ox 97.3 F L 83 16 151/74 94 L 07/19/16 10:48 07/19/16 10:48 07/19/16 10:53 07/19/16 10:48 07/19/16 10:53 General appearance: Present: A&O X 3, answers questions appropriately - Respiratory Respiratory exam: Present: wheezes (B/L coarse breath sounds, and expiratory wheezing at bases). Absent: accessory muscle use, rales, rhonchi
[2016-07-19] MEDS: Levofloxacin 750 MG/150 ML 750 MG/150 ML BAG IVPB SCH (17:20)
[2016-07-19] MEDS ORDERED: *HR* Warfarin 4 MG TABLET PO ONE (18:00)
[2016-07-19] MEDS ORDERED: *HR* Warfarin 5 MG TABLET PO ONE (18:00)
== END 2016-07-19 17:21 | disposition home or self-care (01) | DRG 190 ==
LOC: ICNU 13:02 → 2ANU 07-17 10:35
PROVIDERS: ADMIT Internal Medicine; ATTEND Internal Medicine